=== PATIENT | male | born 1960 | race African-American/Black ===

== ENCOUNTER → 2021-08-24 | Day surgery (SDC) | payer OTHER ==
[~2021-08-24] VITALS: Ht 172.7 cm; Wt 72.6 kg
[~2021-08-24] MED LIST: KEPPRA XR500 MG PO; PERCOCET 5-3251 EACH PO
[2021-08-24 07:01] LABS: HCT 37.4 % (42.0-52.0); HGB 12.7 g/dl (13.2-18.0); MCH 31.1 pg (25.0-31.0); MCV 91.7 fL (78.0-100.0); MPV 10.9 fL (6.0-9.5); RBC 4.08 M/uL (4.70-6.00); WBC 4.2 K/uL (4.0-10.5)
[2021-08-24 08:00] LABS: ALBUMIN 2.5 g/dL (3.4-5.0); BILIRUBIN - TOTAL 0.5 mg/dL (0.2-1.0); BUN/CREAT RATIO (CALC) 5.6 RATIO; CREATININE 0.54 mg/dL (0.67-1.17); GLOBULIN (CALCULATION) 4.9 g/dL; POTASSIUM 3.7 mmol/L (3.5-5.1); TOTAL PROTEIN 7.4 g/dL (6.4-8.2)
--- NOTE | 2021-08-24 15:44 | NUR ---
VITAL SIGNS REMAINED STABLE THROUGHOUT BLOCK AND AFTER. VITAL SIGNS LOST R/T MONITOR MALFUNCTION -PROCEDURE START AT 08 -PROCEDURE END AT 08 TOLERATED PROCEDURE WELL WITH NO PAIN NOTED
== END | disposition home or self-care (01) ==
LOC: FAS 06:25
PROVIDERS: Orthopaedic Surgery
DX: S52.571A Other intraarticular fracture of lower end of right radius, initial encounter for closed fracture (principal); F17.200 Nicotine dependence, unspecified, uncomplicated; W19.XXXA Unspecified fall, initial encounter
CPT/HCPCS: 36415; 71045; 73100; 76000; 80053; 93005; C1713; C1769; J0690; J1100; J2250; J2405; J2704; J2795; J3010; J7120